=== PATIENT | female | born 1990 | race Caucasian/White ===

== ENCOUNTER → 2019-09-27 | Outpatient (CLI) | payer OTHER, SELFPAY ==
[2019-03-05 09:57] VITALS: BMI 23.3
[2019-09-27 12:25] LABS: hCG Titer Quant., Serum 164 mIU/mL (1-3)
== END | disposition home or self-care (01) ==
LOC: LAB 09:43
PROVIDERS: PCP Family Medicine; Referring Provider Obstetrics & Gynecology; Visit Provider Obstetrics & Gynecology
DX: O20.0 Threatened abortion (principal)
CPT/HCPCS: 36415; 84702

== ENCOUNTER → 2019-09-30 | Outpatient (CLI) | payer OTHER, SELFPAY ==
[2019-03-05 09:57] VITALS: BMI 23.3
[2019-09-30 11:08] LABS: hCG Titer Quant., Serum 799 mIU/mL (1-3)
== END | disposition home or self-care (01) ==
LOC: LAB 09:46
PROVIDERS: PCP Family Medicine; Referring Provider Obstetrics & Gynecology; Visit Provider Obstetrics & Gynecology
DX: N91.2 Amenorrhea, unspecified (principal)
CPT/HCPCS: 36415; 84702

== ENCOUNTER → 2019-10-10 07:54 | Outpatient (CLI) | payer OTHER, SELFPAY ==
[2019-03-05 09:57] VITALS: BMI 23.3
--- NOTE | 2019-10-10 07:56 | US_ITS ---
STUDY: FIRST TRIMESTER OBSTETRICAL ULTRASOUND REASON FOR EXAM: Female, 29 years old dating/initial LMP: August 22, 2019. TECHNIQUE: Transvaginal TECHNICAL QUALITY: Adequate. PRIOR ULTRASOUND: None. FINDINGS: There is visualization of a single gestational sac in a normal intrauterine position. The mean sac diameter (MSD) measures 1.2 cm, indicating an estimated gestational age (EGA) of 5 weeks, 5 days. The gestational sac shape is within normal limits. There is a visualized yolk sac. The yolk sac measures 3 mm. The placenta is non-visualized. There is visualization of a live embryo. The crown-rump length (CRL) measures 3 mm, indicating an estimated gestational age (EGA) of 6 weeks, 1 days. There is demonstrated cardiac activity with a heart rate of 107 bpm. The estimated gestation age (EGA) by LMP is 7 weeks, 0 days. The estimated date of delivery (ROSSY) by LMP is May 28, 2020. The estimated gestation age (EGA) by US is 5 weeks, 6 days. The estimated date of delivery (ROSSY) by US is June 05, 2020. The uterus measures 10 cm x 6.9 cm x 5.4 cm. There is no demonstrated uterine fibroid. The cervix is closed. The right ovary measures 3 cm x 2.1 cm x 1.9 cm. There is no right ovarian cyst. There is no visualized right adnexal mass or complex lesion. The left ovary measures 4.2 cm x 2.8 cm x 2.7 cm. A dominant follicle is seen within the left ovary measuring 1.5 cm x 1.5 cm x 1.3 cm. There is no visualized left adnexal mass or complex lesion. There is no fluid in the cul de sac. US/Transvaginal w/Preg US IMPRESSION: Single live intrauterine gestation with a mean gestational age of 5 weeks and 6 days. 1.5 cm x 1.5 cm x 1.3 cm follicle in the left ovary. Electronically Signed: Clovis Byrd, at 10:14 EDT , Service support ,
== END ==
PROVIDERS: PCP Family Medicine; Referring Provider Obstetrics & Gynecology; Visit Provider Obstetrics & Gynecology
DX: Z36.87 Encounter for antenatal screening for uncertain dates (principal)
CPT/HCPCS: 76817

== ENCOUNTER → 2019-10-14 | Outpatient (CLI) | payer OTHER, SELFPAY ==
[2019-03-05 09:57] VITALS: BMI 23.3
== END | disposition home or self-care (01) ==
LOC: PAVLAB 12:13 → LAB 12:19
PROVIDERS: PCP Family Medicine; Referring Provider Nurse Practitioner Women's Health; Visit Provider Nurse Practitioner Women's Health
DX: O26.899 Other specified pregnancy related conditions, unspecified trimester (principal); Z67.91 Unspecified blood type, Rh negative; Z3A.00 Weeks of gestation of pregnancy not specified
CPT/HCPCS: 36415; 86850; 86900; 86901

== ENCOUNTER → 2019-10-16 11:32 | Outpatient (CLI) | payer OTHER, SELFPAY ==
[2019-03-05 09:57] VITALS: BMI 23.3
[2019-10-14 12:51] VITALS: BMI 23.3
--- NOTE | 2019-10-16 11:33 | US_ITS ---
STUDY: FIRST TRIMESTER OBSTETRICAL ULTRASOUND REASON FOR EXAM: Female, 29 years old BLEEDING- well being LMP: August 22, 2019. TECHNIQUE: Transvaginal TECHNICAL QUALITY: Adequate. PRIOR ULTRASOUND: Comparison is made with prior examination dated October 10, 2019. FINDINGS: There is visualization of a single gestational sac in a normal intrauterine position. The mean sac diameter (MSD) measures 2.1 cm, indicating an estimated gestational age (EGA) of 7 weeks, 1 days. The gestational sac shape is within normal limits. There is a visualized yolk sac. The yolk sac measures 2 mm. The placenta is non-visualized. There is visualization of a live embryo. The crown-rump length (CRL) measures 1 cm, indicating an estimated gestational age (EGA) of 7 weeks, 1 days. There is demonstrated cardiac activity with a heart rate of 1:30 bpm. The estimated gestation age (EGA) by LMP is 7 weeks, 6 days. The estimated date of delivery (ROSSY) by LMP is May 28, 2020. The estimated gestation age (EGA) by US is 7 weeks, 1 days. The estimated date of delivery (ROSYS) by US is June 02, 2020. The uterus measures 10.5 cm x 6 cm x 5.2 cm. There is no demonstrated uterine fibroid. The cervix is closed. The right ovary measures 2.3 cm x 1.9 cm x 1.5 cm. There is no right ovarian cyst. There is no visualized right adnexal mass or complex lesion. The left ovary measures 3.5 cm x 2.7 cm x 2.6 cm. There is no left ovarian cyst. There is no visualized left adnexal mass or complex lesion. There is no fluid in the cul de sac. US/Transvaginal w/Preg US IMPRESSION: Single live intrauterine gestation with a mean gestational age of 7 weeks and 1 day. The previously seen follicle in the left ovary is not seen at this time. Electronically Signed: Clovis Byrd, at 12:32 EDT , Service support ,
== END ==
PROVIDERS: PCP Family Medicine; Referring Provider Obstetrics & Gynecology; Visit Provider Obstetrics & Gynecology
DX: O20.0 Threatened abortion (principal); Z3A.00 Weeks of gestation of pregnancy not specified
CPT/HCPCS: 76817

== ENCOUNTER → 2019-10-31 | Outpatient (CLI) | payer OTHER, SELFPAY ==
[2019-10-31 11:35] VITALS: BMI 23.3
[2019-10-31 17:05] LABS: Amphetamine Urine VISTA NEGATIVE (<1000 ng/mL); Barbiturate Urine VISTA NEGATIVE (< 200 ng/mL); Benzodiazepine Urine VISTA NEGATIVE (< 200 ng/mL); Cocaine Urine VISTA NEGATIVE (< 300 ng/mL); Ecstacy Urine VISTA NEGATIVE (< 500 ng/mL); Methadone Urine VISTA NEGATIVE (< 300 ng/mL); PCP Urine VISTA NEGATIVE (< 25 ng/mL); THC Urine VISTA NEGATIVE (< 50 ng/mL); Vista UDS pH Range 6
[2019-10-31 18:46] LABS: Chlamydia Trachomatis by PCR Negative (Negative); Neisserai gonorrhoeae by PCR Negative (Negative); Probe Check PASS; Sample Adequacy Control PASS; Specimen Processing Control PASS
== END | disposition home or self-care (01) ==
LOC: LABSPEC 16:05
PROVIDERS: PCP Family Medicine; Referring Provider Obstetrics & Gynecology; Visit Provider Obstetrics & Gynecology
DX: Z34.80 Encounter for supervision of other normal pregnancy, unspecified trimester (principal)
CPT/HCPCS: 80307; 87086; 87088; 87491; 87591

== ENCOUNTER → 2019-11-08 | Outpatient (CLI) | payer OTHER, SELFPAY ==
[2019-10-31 11:35] VITALS: BMI 23.3
[2019-11-08 13:35] LABS: NATERA MAILED SPECIMEN
[2019-11-08 13:55] LABS: Absolute Lymphocyte Count 2.16 X10^3/uL (0.83-4.51); Basophil# 0.04 X10^3/uL; Basophil% 0.4 % (0-1); Eosinophil# 0.04 X10^3/uL; Eosinophils% 0.4 % (0-5); Hematocrit 39.8 % (37-47); Hemoglobin 13.4 g/dL (12.0-15.0); Lymphocyte # 2.16 X10^3/ul (4.0); Lymphocyte % 22.2 % (19-41); Mean Corp Hgb Conc 33.7 g/dL (32-36); Mean Corpuscular Hgb 30.8 pg (27.0-32.0); Mean Corpuscular Volume 91.5 fL (81-99); Mean Platelet Vol. 10.2 fl (6.2-12.0); Monocyte# 0.52 X10^3/uL; Monocyte% 5.3 % (0-10); NRBC Flagged by Analyzer 0 % (0-5); Neutrophil # 6.97 X10^3/uL (2.7-7.7); Neutrophil % 71.5 % (47-70); Platelet Count 233 K/mm3 (150-450); RBC Distribution Width CV 12.8 % (11.6-14.6); Red Blood Count 4.35 M/mm3 (4.2-5.4); White Blood Count 9.8 K/mm3 (4.4-11.0)
[2019-11-08 14:15] LABS: Amphetamine Urine VISTA NEGATIVE (<1000 ng/mL); Barbiturate Urine VISTA NEGATIVE (< 200 ng/mL); Benzodiazepine Urine VISTA NEGATIVE (< 200 ng/mL); Cocaine Urine VISTA NEGATIVE (< 300 ng/mL); Ecstacy Urine VISTA NEGATIVE (< 500 ng/mL); Methadone Urine VISTA NEGATIVE (< 300 ng/mL); PCP Urine VISTA NEGATIVE (< 25 ng/mL); THC Urine VISTA NEGATIVE (< 50 ng/mL); Vista UDS pH Range 6
[2019-11-08 14:56] LABS: HIV - WCH Non-Reactive (Nonreactive); Hepatitis B Surface Antigen Non-Reactive (Nonreactive); Hepatitis C Antibody Non-Reactive (Nonreactive); Rubella IgG 96.3 IU/mL
[2019-11-14 02:30] LABS: Rapid Plasmin Reagin (RPR) NONREACTIVE (NONREACTIVE)
== END | disposition home or self-care (01) ==
LOC: LAB 12:33
PROVIDERS: PCP Family Medicine; Referring Provider Obstetrics & Gynecology; Visit Provider Obstetrics & Gynecology
DX: Z34.81 Encounter for supervision of other normal pregnancy, first trimester (principal)
CPT/HCPCS: 36415; 80307; 85025; 86592; 86703; 86762; 86803; 86850; 86870; 86900; 86901; 87340

== ENCOUNTER → 2020-01-16 | Outpatient (CLI) | payer OTHER, SELFPAY ==
[2020-01-16 10:08] VITALS: BMI 23.3
== END | disposition home or self-care (01) ==
LOC: LAB 10:25
PROVIDERS: PCP Family Medicine; Referring Provider Obstetrics & Gynecology; Visit Provider Obstetrics & Gynecology
DX: R79.9 Abnormal finding of blood chemistry, unspecified (principal)
CPT/HCPCS: 36415; 86850; 86870; 86900; 86901

== ENCOUNTER → 2020-03-13 | Outpatient (CLI) | payer OTHER, SELFPAY ==
[2020-02-13 11:04] VITALS: BMI 23.3
[2020-03-13 10:42] LABS: Absolute Lymphocyte Count 1.65 X10^3/uL (0.83-4.51); Basophil# 0.04 X10^3/uL; Basophil% 0.4 % (0-1); Eosinophil# 0.07 X10^3/uL; Eosinophils% 0.7 % (0-5); Hematocrit 37.4 % (37-47); Hemoglobin 12.4 g/dL (12.0-15.0); Lymphocyte # 1.65 X10^3/ul (4.0); Lymphocyte % 17.4 % (19-41); Mean Corp Hgb Conc 33.2 g/dL (32-36); Mean Corpuscular Hgb 32.5 pg (27.0-32.0); Mean Corpuscular Volume 98.2 fL (81-99); Mean Platelet Vol. 10.4 fl (6.2-12.0); Monocyte# 0.62 X10^3/uL; Monocyte% 6.5 % (0-10); NRBC Flagged by Analyzer 0 % (0-5); Neutrophil # 6.99 X10^3/uL (2.7-7.7); Neutrophil % 73.6 % (47-70); Platelet Count 174 K/mm3 (150-450); RBC Distribution Width CV 13.2 % (11.6-14.6); RBC Distribution Width SD 46.8 fl (35.1-43.9); Red Blood Count 3.81 M/mm3 (4.2-5.4); White Blood Count 9.5 K/mm3 (4.4-11.0)
[2020-03-13 10:51] LABS: Glucose Challenge Gest 1H 50g 66 mg/dL (70-140)
== END | disposition home or self-care (01) ==
LOC: PAVLAB 09:56
PROVIDERS: Obstetrics & Gynecology; PCP Family Medicine; Referring Provider Obstetrics & Gynecology; Visit Provider Obstetrics & Gynecology
DX: O26.891 Other specified pregnancy related conditions, first trimester (principal); O09.91 Supervision of high risk pregnancy, unspecified, first trimester; O34.219 Maternal care for unspecified type scar from previous cesarean delivery; O26.22 Pregnancy care for patient with recurrent pregnancy loss, second trimester; Z3A.24 24 weeks gestation of pregnancy
CPT/HCPCS: 36415; 82950; 85025; 86850; 86900; 86901

== ENCOUNTER → 2020-05-07 | Outpatient (CLI) | payer OTHER, SELFPAY ==
[2020-05-07 09:07] VITALS: BMI 27.8
== END | disposition home or self-care (01) ==
LOC: LABSPEC 12:28
PROVIDERS: PCP Family Medicine; Visit Provider Obstetrics & Gynecology
DX: Z34.90 Encounter for supervision of normal pregnancy, unspecified, unspecified trimester (principal)
CPT/HCPCS: 87081

== ENCOUNTER → 2020-05-21 | Outpatient (CLI) | payer OTHER, SELFPAY ==
[2020-04-23 08:50] VITALS: BMI 27.6
[2020-05-15 15:54] VITALS: BMI 28.3
== END | disposition home or self-care (01) ==
LOC: LABSPEC 17:43
PROVIDERS: PCP Family Medicine; Referring Provider Obstetrics & Gynecology; Visit Provider Obstetrics & Gynecology
DX: Z34.80 Encounter for supervision of other normal pregnancy, unspecified trimester (principal)
CPT/HCPCS: 87635; C9803; U0003

== ENCOUNTER 2020-05-27 05:00 | Inpatient (IN) | payer OTHER, SELFPAY ==
[2020-03-13 10:33] VITALS: BMI 23.3
[2020-05-22 15:00] VITALS: BMI 28.5
[2020-05-27] VITALS (16 sets, daily range): BP systolic 98–120; BP diastolic 32–76; PULSE 75–94; RESP 15–18; TEMP 36.2–37.2; O2SAT 95–100; BMI 28.7
--- NOTE | 2020-05-27 05:11 | HP.PCM_ITS ---
- Problem List (1) 35 weeks gestation of Status: Acute Comment: NEGATIVE (2) History of delivery, antepartum Status: Acute Comment: Desires c/s at 39 weeks w/ SM, scheduled 05/27 at 730 (3) History of recurrent miscarriages Status: Acute Comment: 1 term delivery, 1 chemical with loss and 1 first trimester loss. Discussed antiphospholipid antibody syndrome work-up if desired patient declines at this time. (4) Status: Acute Qualifiers: Comment: NIPT low risk declines carrier, NTD declined. 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 Chioma Quick MD) Smoking Status: Never smoker alcohol intake: never substance use type: does not use caffeine: Yes what type of physical activity do you participate in: walking seatbelt use: always do you feel safe at home: Yes additional social history: - Sylvain Pregancy History 3 Elective abortions Hx Para 1 Spontaneous abortions 1 Hx # Term Pregnancies Ectopic pregnancies Hx # Pregnancies Multiple births # of living children 1 Past Pregnancies Del. Date Name GA/Weeks Outcome Route Bth Weight [facility]17 Step[facility]nie 41 live - full term 7.8 Male epidural Matthew Ferreira Delivery Date: 04/27/17 decrease in heart rate- c/s Maribel Tay HPI 38WK OB : Details: FAUSTINA VALDOVINOS is a 29 year old who presents for RLTCS. OB Visit ROSSY Calculator Estimated Delivery Date Method Current WG Current Estimate 06/03/20 Ultrasound #1 38w 2d Expected Delivery Route/Plan RLTCS with SM patient counseled regarding risks/benefits of trial of labor versus repeat . ACOG and uptodate education given to patient. 65-78 % likelihood of success per calculator : yes PP control planned: OCPs Specific Issue/Plans flu vaccine: tdap vaccine: given rhogam: given LARC form signed: yes movement and labor precautions reviewed. Problem list reviewed and updated with the most current plan of care details and appropriate orders placed. Relevant counseling for the gestational age provided. Continue routine care and follow up unless otherwise noted in visit notes/problem list details Initial Weight: 126 lb Date EGA Weight BP Urine Prot Glucose FHR FuHt Pres Dilation Effaced St Visit Note 10/21/19 7w 5d 126 lb (+0 oz) 120/74 150 SM had bleeding postcoital, recevied rhogam last week, no cramping and bleeding decreasing now. 10/31/19 9w 1d 129 lb (+3 lb) 180 SM- no vb cramping doing well 11/19/19 11w 6d 126 lb 6 oz (+6 oz) 112/76 Negative Negative 171 MH-work in for cramping. Active IUP on US. Denies VB, lof. NIPT low risk. MH-work in for cramping. Active IUP on US. Denies VB, lof. NIPT low risk. Reassured probable RLP 12/19/19 16w 1d 127 lb 2 oz (+1 lb 2 oz) 110/70 Negative Negative 157 MH-NO VB, LOF. Slight flutters. Anatomy US scheduled. Declines AFP 01/16/20 20w 1d 130 lb (+4 lb) 106/70 Negative Negative 150 20 SM- no vb cramping, t and s today 02/13/20 24w 1d 138 lb (+12 lb) 100/64 Negative Negative 155 24 GP - denies LOF/VB/DFM/Ctx. Increased heartburn - recommended pepcid. 03/13/20 28w 2d 143 lb 8 oz (+17 lb 8 oz) 108/64 Negative Negative 150 28 Sm- no vb lof good fm no regular ctx 03/25/20 30w 0d 147 lb (+21 lb) 112/72 Negative Negative 128 30 MH-No VB, LOF. Some pelvic bone pain/aylin band. 04/08/20 32w 0d 148 lb 6 oz (+22 lb 6 oz) 120/76 Negative Negative 155 32 GP - no LOF, VB, DFM. Had Richard-Oseguera yesterday. Denies complaints. Discussed typically do not do extra ultrasounds unless concerned for abnormalities. 04/23/20 34w 1d 151 lb (+25 lb) 109/75 Negative Negative 140 34 Cephalic SM- no vb lof good fm no regular ctx but some B-H ctx 05/07/20 36w 1d 152 lb (+26 lb) 124/62 Negative Negative 140 36 Cephalic SM- no vb lof good fm no regular ctx 05/15/20 37w 2d 155 lb (+29 lb) 122/70 Negative Negative 140 37 Cephalic SM- no vb lof good fm no regular ctx 05/22/20 38w 2d 156 lb 4 oz (+30 lb 4 oz) 120/82 140 38 Cephalic 1 70 -2 GP - no LOF, VB, DFM, reg ctx. Scheduled for RCS next week unless active labor before that time. ACOG First Trimester First Trimester: Desire for , Alcohol, Tobacco Cessation, Ill icit/Recreational Drug/Substance Use, Intimate Partner Violence, Barriers to care, Unstable Housing, Communication Barriers, Environmental/Work Hazards, Anticipated Course of Care, Toxoplasmosis Precations, Use of Any medications, Sexual activity, Exercise, Dental Care, Sauna/Hot tub use, Seat Belt use, Childbirth classes/Hospital facilities, Travel, Indications for US and Screening for Aneuploidy Second Trimester Second Trimester: Signs and Symptoms of Labor, Selecting a care provider, Reproductive Life Planning, Care Planning, Depr ession/Anxiety and Intimate Partner Violence; discussed Tobacco Cessation Diagnostics Diagnostics Diagnostics Blood Type O NEGATIVE 03/13/20 Antibody Screen NEGATIVE 03/13/20 Glucose 1 Hr 50 gm 66 mg/dL (70-140) L 03/13/20 Hgb 12.4 g/dL (12.0-15.0) 03/13/20 Hct 37.4 % (37-47) 03/13/20 Details: HIV: Urine Culture: Sequential Screen: NIPT Screen: ROS Const Reports system reviewed and no additional complaints, except as docu Eyes Reports system reviewed and no additional complaints, except as docu ENT Reports system reviewed and no additional complaints, except as docu Card Reports system reviewed and no additional complaints, except as docu Resp Reports system reviewed and no additional complaints, except as docu GI Reports system reviewed and no additional complaints, except as docu Reports system reviewed and no additional complaints, except as docu, Denies abnormal vaginal bleeding, Denies painful urination, Denies nipple discharge, Denies pelvic pain, Denies vaginal discharge, Denies vaginal odor, Denies vaginal itching Musc Reports system reviewed and no additional complaints, except as docu Skin/Breast Reports system reviewed and no additional complaints, except as docu, Denies nipple discharge Neuro Yes system reviewed and no additional complaints, except as docu Psych Reports system reviewed and no additional complaints, except as docu Exam Const General: cooperative, healthy appearing, comfortable, no acute distress, well developed, well groomed Nutritional Appearance: average body habitus, well nourished Orientation: alert, awake, oriented x3 [facility] Head: normal to inspection, normocephalic, atraumatic Eyes Pupils: PERRL, accommodation normal Resp Effort & Inspection: normal respiratory effort, able to speak in complete s entences, symmetric chest movement Cardio Rate: regular rate GI Palpation: soft, no guarding, no masses, nontender Skin General: no rashes or lesions noted, elasticity normal, turgor normal Neuro General: alert, awake, oriented x3 Cranial Nerves: CN's II-XI intact bilaterally, sense of smell intact, PERRL, accommodation normal, EOM intact bilaterally Speech: speech normal Gait: normal gait Psych Appearance: grossly normal, well kempt Mental Status: mental status grossly normal Mood: congruent mood Affect: normal affect Speech and Movement: speech and movement normal Attitude: cooperative Thought Process: normal Thought Content: normal Judgment: judgment good Assessment & Plan Problems 1. 35 weeks gestation of Z3A.35 electronic covid test ordered 04/29/2020sc (scheduled 05/21/20 at 4:30) 2. Supervision of high-risk O09.90 PRR ROSSY 06/03/2020 Boy - Dagoberto PC: [place] Spouse: Sylvain 3. History of delivery, antepartum O34.219 Desires c/s at 39 weeks w/ SM, scheduled 05/27 at 730 4. Rh negative status during O26.899; Z67.91 given rhogam october, repeat t and s next visit due to positive antibody, weak antibody recheck @ 28 wks 5. 38 weeks gestation of Z3A.38 NIPT low risk declines carrier, NTD declined. anatomy normal 6. History of recurrent miscarriages N96 1 term delivery, 1 chemical with loss and 1 first trimester loss. Discussed antiphospholipid antibody syndrome work-up if desired patient declines at this time. plan RLTCS with SM Orders Orders: POC Urinalysis 2 Dip (Clinic) Today Coding Level of Care Code OB Routine Diagnoses 35 weeks gestation of Z3A.35 Supervision of high-risk O09.90 History of delivery, antepartum O34.219 Rh negative status during O26.899; Z67.91 38 weeks gestation of Z3A.38 ??Weeks of gestation: 38 weeks History of recurrent miscarriages N96 UPDATE- I have seen the patient and performed any clinically relevant updates to the history and physical exam. Minoo Munroe MD
--- NOTE | 2020-05-27 05:12 | PCM.OPRPT ---
Problem List (1) 35 weeks gestation of Status: Acute Comment: NEGATIVE (2) History of delivery, antepartum Status: Acute Comment: Desires c/s at 39 weeks w/ SM, scheduled 05/27 at 730 (3) History of recurrent miscarriages Status: Acute Comment: 1 term delivery, 1 chemical with loss and 1 first trimester loss. Discussed antiphospholipid antibody syndrome work-up if desired patient declines at this time. (4) Status: Acute Qualifiers: Comment: NIPT low risk declines carrier, NTD declined. 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 Spinal anesthesia was placed without difficulty. Medel catheter was placed. The patient was placed in the dorsal supine position with leftward tilt. Patient was prepped and draped in the normal sterile fashion. Pfannenstiel skin incision was made with the scalpel and carried through to the underlying layer of fascia with the scalpel. Fascia was nicked in the midline and the incision extended laterally. The rectus bellies were dissected off superiorly and inferiorly with out complication both sharply and bluntly. The peritoneum was entered digitally. The incision was stretched and a low transverse uterine incision was made with the scalpel. The 's head was delivered atraumatically followed by the anterior and posterior shoulders without complication the rest of the delivered. The cord was clamped and cut and the was handed off to awaiting nurse. The placenta was delivered spontaneously immediately following and was noted to be intact and have a three-vessel cord. The uterus was exteriorized cleared of all clots and debris, and the incision was closed in a double layer closure using #1 Monocryl. The ovaries and fallopian tubes were noted to be within normal limits. The uterus was returned to the maternal abdomen and gutters were cleared of all clots and debris. The peritoneum was closed with 3-0 Monocryl in a running fashion. Gloves were changed prior to fascial closure. Fascia was closed with 0 PDS in a running fashion. Subcutaneous tissue was copiously irrigated and the skin was closed with 3-0 Monocryl in a subcuticular fashion. Mepilex dressing was applied without complication. Patient was taken to recovery in stable condition. Amniotic Membrane Rupture Type: Spontaneous Amniotic Fluid Description: Clear Placenta Disposition: [facility] Drain: Medel to straight drain Fluids Replaced: crystalloid Cord Vessel Description: 3 Vessels Esitmated Blood Loss (ml): 500 Infant Gender: Male Delayed cord clamping: Yes Antibiotic Given: Ancef 2 grams IV x1 Pt instructed on risks of surgery: Bleeding, Anesthesia Risks, Infection, Injury to surrounding structure(s) including bowel and bladder Complications: None - Admit VTE Documentation VTE Present on Admission: No VTE Mechan Device Prophylaxis: SCD's Multi Select Codes - Urinary/Genital Urinary/Genital CPT Codes: 11462 Delivery [facility]
--- NOTE | 2020-05-27 05:16 | DCINST_ITS ---
Discharge Diet: No Restrictions Discharge Activity: May Not Drive - for 2 weeks, May not drive while taking narcotic pain medications., May Shower, May Take a Tub Bath - in 7 days May resume sexual activity in: 4-6 weeks Lifting Restrictions: 20 pounds Additional Activity Instructions:: Nothing in the vagina for 4-6 weeks. You may return to work/school in 6 weeks. Call your doctor if your incision/area has: Continuous Slow Oozing, Sudden Increased Bleeding, Increased Pain/ Swelling, Increased Redness, Foul Smelling Discharge Call your doctor if you observe: Fever of 101 or Higher, Using more than one pad per hour - for 2 hours Suture Line Care: Avoid Pulling/Pushing, Avoid Pinching/Bending Cleanse incision/area with: Keep Dressing Clean & Dry Additional Instructions: If you experience any of the following, contact your healthcare provider. * Bleeding that soaks a pad every hour for 2 hours * Fever 100.4 or higher * Unrelieved incision or abdominal pain * Swelling, redness, discharge or bleeding from your incision or episiotomy site * Your incision begins to separate * Problems urinating (including inability to urinate or burning while urinating). * Visual changes * Severe headache * Flu-like symptoms * Pain or redness in one of both of your breasts * Pain, warmth, tenderness or swelling in your legs, especially the calf area * Frequent nausea and vomiting * Symptoms of depression or anxiety If you experience any of the following, call 911 or go to the nearest Emergency Room. * Chest pain * Problems breathing * Seizure activity * Partial or complete paralysis of a body part, slurred speech, weakness or drooping of the face, or a sudden inability to walk or hold your balance Allergies/Adverse Reactions: Allergies No Known Allergies Allergy (Verified 05/27/20 05:15) Medications to take at Discharge vitamin#30 30 mg iron-10 mg iron-folic acid 1 mg-omg3 capsule cap PO cap 03/05/19 Follow-Up: Call to make an appointment with your doctor for an incision check in 1-2 weeks. You will also need a 6 week post- follow up appointment. Test results from this visit will be discussed in further detail at your follow- up appointment, if applicable. Please Follow Up With: Minoo Munroe MD - Call to make an appointment for an incision check in 1-2 [phone] When: You will need a post- check in 6 weeks. Primary Care Physician: Freddie Tadeo, [Primary Care Provider] -
[2020-05-27] MEDS: Lactated Ringers 1,000 ML 999 ML IV (05:20)
[2020-05-27] MEDS: Acetaminophen 500 MG Tablet 1000 MG PO ×3 (05:43→18:15)
[2020-05-27 05:44] LABS: Absolute Lymphocyte Count 2.16 X10^3/uL (0.83-4.51); Absolute Neutrophil Count 6.9 X10^3/uL (2.0-7.7); Basophil# 0.04 X10^3/uL; Basophil% 0.4 % (0-1); Eosinophil# 0.04 X10^3/uL; Eosinophils% 0.4 % (0-5); Hematocrit 38.3 % (37-47); Hemoglobin 12.7 g/dL (12.0-15.0); Lymphocyte # 2.16 X10^3/ul (4.0); Lymphocyte % 22.2 % (19-41); Mean Corp Hgb Conc 33.2 g/dL (32-36); Mean Corpuscular Hgb 31.9 pg (27.0-32.0); Mean Corpuscular Volume 96.2 fL (81-99); Mean Platelet Vol. 11.1 fl (6.2-12.0); Monocyte# 0.57 X10^3/uL; Monocyte% 5.9 % (0-10); NRBC Flagged by Analyzer 0 % (0-5); Neutrophil # 6.87 X10^3/uL (2.7-7.7); Neutrophil % 70.7 % (47-70); Platelet Count 183 K/mm3 (150-450); RBC Distribution Width CV 13.6 % (11.6-14.6); RBC Distribution Width SD 47.8 fl (35.1-43.9); Red Blood Count 3.98 M/mm3 (4.2-5.4); White Blood Count 9.7 K/mm3 (4.4-11.0)
[2020-05-27] MEDS: Lactated Ringers 1,000 ML 150 ML IV (06:24)
[2020-05-27] MEDS: Sodium Citrate/Citric Acid 30 ML UDC PO (07:04)
[2020-05-27] MEDS: Cefazolin 2 GM in 0.9% Normal Saline 100 ML IV (07:25)
[2020-05-27] MEDS: Oxytocin 30 units/NS 500 ml 30 UNITS/500 ML IV.SOLN 167 UNITS IV (08:27)
[2020-05-27] MEDS: Lactated Ringers 1,000 ML 100 ML IV (11:34)
[2020-05-27] MEDS: Prenatal Vits Tablet 1 TABLET PO (12:24)
[2020-05-27] MEDS: Ketorolac 30 MG/ML Syringe IV ×2 (14:08→20:28)
--- NOTE | 2020-05-27 15:51 | NURSING ---
Had pt sit on side of bed for 10 minutes, but pt felt dizzy and shaky. Pt stood up at bedside but continued to feel dizzy and felt like her legs were still weak. Will attempt to get pt up later.
--- NOTE | 2020-05-27 19:21 | NURSING ---
this RN received in report that pt stood at bedside at this time. this RN planning to get pt to ambulate in room as soon as possible.
[2020-05-27] MEDS: 0.9% Saline Lock 10 ML Syringe IV (20:29)
[2020-05-28] MEDS: Acetaminophen 500 MG Tablet 1000 MG PO ×4 (00:11→19:30)
[2020-05-28 00:20] VITALS: BP 127/83; PULSE 71; RESP 16; TEMP 36.8
[2020-05-28] MEDS: Ketorolac 30 MG/ML Syringe IV ×2 (02:49→07:50)
[2020-05-28] MEDS: 0.9% Saline Lock 10 ML Syringe IV (02:50)
[2020-05-28 02:55] VITALS: BP 110/71; PULSE 73; RESP 14; TEMP 36.6
[2020-05-28 03:26] LABS: Hematocrit 36.1 % (37-47); Hemoglobin 11.9 g/dL (12.0-15.0); Mean Corpuscular Hgb 32.3 pg (27.0-32.0); Mean Corpuscular Volume 98.1 fL (81-99); Mean Platelet Vol. 10.1 fl (6.2-12.0); Platelet Count 154 K/mm3 (150-450); RBC Distribution Width CV 13.8 % (11.6-14.6); RBC Distribution Width SD 49.7 fl (35.1-43.9); Red Blood Count 3.68 M/mm3 (4.2-5.4); White Blood Count 11.8 K/mm3 (4.4-11.0)
[2020-05-28] MEDS: Senna/Docusate Sodium 1 Tablet PO (07:50)
[2020-05-28] MEDS: Prenatal Vits Tablet 1 TABLET PO (07:51)
[2020-05-28 07:58] VITALS: BP 111/82; PULSE 78; RESP 14; TEMP 36.6; O2SAT 95
--- NOTE | 2020-05-28 09:28 | PCM.PN.OB ---
Patient Problems: Active and Suspected Problems (Last Reviewed 05/22/20 @ 15:00 by Rosa Shafer) 35 weeks gestation of (Acute) NEGATIVE Supervision of high-risk (Acute) PRR ROSSY 06/03/2020 Mahad Arenas PC: [place] Spouse: Sylvain History of delivery, antepartum (Acute) Desires c/s at 39 weeks w/ SM, scheduled 05/27 at 730 Rh negative status during (Acute) given rhogam october, repeat t and s next visit due to positive antibody, weak antibody recheck @ 28 wks (Acute) NIPT low risk declines carrier, NTD declined. anatomy normal History of recurrent miscarriages (Acute) 1 term delivery, 1 chemical with loss and 1 first trimester loss. Discussed antiphospholipid antibody syndrome work-up if desired patient declines at this time. Subjective: Patient doing well without complaints. Tolerating PO. Ambulating and voiding without difficulty. breast feeding well. Denies chest pain, shortness of breath, calf pain/swelling, fevers, chills, lightheadedness. Objective: Laboratory Tests 05/28/20 05/27/20 05/27/20 Range/Units 03:10 05:20 05:20 WBC 11.8 H (4.4-11.0) K/mm3 RBC 3.68 L (4.2-5.4) M/mm3 Hgb 11.9 L (12.0-15.0) g/dL Hct 36.1 L (37-47) % MCV 98.1 (81-99) fL MCH 32.3 H (27.0-32.0) pg MCHC 33.0 (32-36) g/dL RDW Std Deviation 49.7 H (35.1-43.9) fl RDW Coeff of Mabel 13.8 (11.6-14.6) % Plt Count 154 (150-450) K/mm3 MPV 10.1 (6.2-12.0) fl Immature Gran % (Auto) (0.0-0.9) % Neut % (Auto) (47-70) % Lymph % (Auto) (19-41) % Lyon % (Auto) (0-10) % Eos % (Auto) (0-5) % Baso % (Auto) (0-1) % Absolute Neuts (auto) (2.0-7.7) X10^3/uL Absolute Lymphs (auto) (0.83-4.51) X10^3/uL Nucleated RBC % (0-5) % Blood Type Antibody Screen NEGATIVE Antibody Scrn Cancelled 05/27/20 05/27/20 Range/Units 05:20 05:20 WBC 9.7 (4.4-11.0) K/mm3 RBC 3.98 L (4.2-5.4) M/mm3 Hgb 12.7 (12.0-15.0) g/dL Hct 38.3 (37-47) % MCV 96.2 (81-99) fL MCH 31.9 (27.0-32.0) pg MCHC 33.2 (32-36) g/dL RDW Std Deviation 47.8 H (35.1-43.9) fl RDW Coeff of Mabel 13.6 (11.6-14.6) % Plt Count 183 (150-450) K/mm3 MPV 11.1 (6.2-12.0) fl Immature Gran % (Auto) 0.400 (0.0-0.9) % Neut % (Auto) 70.7 H (47-70) % Lymph % (Auto) 22.2 (19-41) % Lyon % (Auto) 5.9 (0-10) % Eos % (Auto) 0.4 (0-5) % Baso % (Auto) 0.4 (0-1) % Absolute Neuts (auto) 6.9 (2.0-7.7) X10^3/uL Absolute Lymphs (auto) 2.16 (0.83-4.51) X10^3/uL Nucleated RBC % 0 (0-5) % Blood Type O NEGATIVE Antibody Screen TNP Antibody Scrn - Physical Exam Vitals/I&O's: Vital Signs Temp Pulse Resp BP Pulse Ox 97.8 F 78 14 111/82 H 95 05/28/20 07:58 05/28/20 07:58 05/28/20 07:58 05/28/20 07:58 05/28/20 07:58 Oxygen Delivery Method Room Air Weight: 157 lb Body Mass Index (BMI) 28.7 Intake and Output for Last 24 Hours 05/26/20 05/27/20 05/28/20 23:59 23:59 23:59 Intake Total 4686.67 / 4686.67 240 / 240 Output Total 2550 / 3150 600 / 600 Balance 2136.67 / 1536.67 -360 / -360 General: Alert, Oriented x3, Cooperative, No apparent distress, Well developed, Well nourished HEENT: Atraumatic, PERRLA, EOMI, Normocephalic Neck: Supple, No JVD Lungs: Normal air movement Cardiovascular: Regular rate Abdomen: Soft, Non Tender, Non-Distended, - - incision c/d/i with dressing in place Extremities: No edema, No Calf Tenderness Neurological: Cranial nerves II-XII grossly intact, Neuro grossly intact Psych/Mental Status: Normal Affect, Appropriate Laboratory Results 05/28/20 03:10: WBC 11.8 H, RBC 3.68 L, Hgb 11.9 L, Hct 36.1 L, MCV 98.1, MCH 32.3 H, MCHC 33.0, RDW Std Deviation 49.7 H, RDW Coeff of Mabel 13.8, Plt Count 154, MPV 10.1 Current Medications Acetaminophen (Acetaminophen 500 Mg Tablet) 1,000 mg PO Q6 [facility] Last Admin: 05/28/20 06:33 Dose: 1,000 mg Documented by: Bisacodyl (Bisacodyl 10 Mg Suppository) 10 mg RECTAL UD PRN PRN Reason: If no BM Hydrocortisone (Hydrocortisone 2.5% Crm) 1 applic TOPICAL TID PRN PRN; Protocol PRN Reason: Discomfort Lactated Ringer's () 1,000 mls @ 100 mls/hr IV .Q10H [facility] Last Admin: 05/28/20 05:21 Dose: Not Given Documented by: Methylergonovine Maleate (Methylergonovine 0.2 Mg/Ml Ampul) 0.2 mg IM X1 PRN PRN Reason: Uterine Atony Naloxone HCl (Naloxone 0.4 Mg/Ml Syringe) 0.02 mg IV Q1M PRN PRN Reason: RR <10 and pt unresponsive Naproxen (Naproxen 250 Mg Tablet) 500 mg PO Q8H [facility] Ondansetron HCl (Ondansetron 4 Mg/2 Ml Vial) 4 mg IV Q4H PRN PRN PRN Reason: Nausea Oxycodone HCl (Oxycodone 5 Mg Tablet) 5 - 10 mg PO Q4H PRN PRN PRN Reason: Pain Score 4-10 Multivit/Folic Acid/Iron ( Vits Tablet) 1 tablet PO DAILY@1200 [facility] Last Admin: 05/28/20 07:51 Dose: 1 tablet Documented by: Prochlorperazine Edisylate (Prochlorperazine 10 Mg/2 Ml Vial) 10 mg IV Q6H PRN PRN PRN Reason: NAUSEA Senna/Docusate Sodium (Senna/Docusate Sodium 1 Tablet) 0 tablet PO DAILY [facility] Last Admin: 05/28/20 07:50 Dose: 1 tablet Documented by: Simethicone (Simethicone 80 Mg Tablet) 80 mg PO [facility] PRN PRN Reason: Indigestion/stomach pain Last Admin: 05/28/20 00:19 Dose: 80 mg Documented by: Sodium Chloride (0.9% Saline Lock 10 Ml Syringe) 5 - 15 ml IV UD PRN PRN Reason: SALINE FLUSH Last Admin: 05/28/20 02:50 Dose: 10 ml Documented by: Medical Necessity - Tobacco Use Smoking Status: Never smoker Assessment/Plan All Active Problems (Last Reviewed 05/22/20 @ 15:00 by Rosa Shafer) 35 weeks gestation of (Acute) Supervision of high-risk (Acute) History of delivery, antepartum (Acute) Rh negative status during (Acute) (Acute) History of recurrent miscarriages (Acute) Complete (Resolved) Vaginal bleeding during (Resolved) s/p LTCS PPD # 1 1. routine post care 2. breast feeding- support given 3. rh negative 4. rubella immune
[2020-05-28 13:53] VITALS: BP 122/79; PULSE 84; RESP 14; TEMP 36.7; O2SAT 98
[2020-05-28] MEDS: Naproxen 250 MG Tablet 500 MG PO ×2 (14:48→20:26)
[2020-05-28 20:20] VITALS: BP 114/77; PULSE 78; RESP 18; TEMP 36.9
[2020-05-29 01:37] VITALS: BP 110/77; PULSE 65; RESP 18; TEMP 36.7
[2020-05-29] MEDS: Acetaminophen 500 MG Tablet 1000 MG PO ×2 (01:39→08:25)
[2020-05-29] MEDS: Naproxen 250 MG Tablet 500 MG PO (03:17)
--- NOTE | 2020-05-29 07:48 | PN.OBGYN_ITS ---
Patient Problems: Active and Suspected Problems (Last Reviewed 05/22/20 @ 15:00 by Rosa Shafer) 35 weeks gestation of (Acute) NEGATIVE Supervision of high-risk (Acute) PRR ROSSY 06/03/2020 Mahad Arenas PC: [place] Spouse: Sylvain History of delivery, antepartum (Acute) Desires c/s at 39 weeks w/ SM, scheduled 05/27 at 730 Rh negative status during (Acute) given rhogam october, repeat t and s next visit due to positive antibody, weak antibody recheck @ 28 wks (Acute) NIPT low risk declines carrier, NTD declined. anatomy normal History of recurrent miscarriages (Acute) 1 term delivery, 1 chemical with loss and 1 first trimester loss. Discussed antiphospholipid antibody syndrome work-up if desired patient declines at this time. Subjective: Patient doing well without complaints. Tolerating PO. Ambulating and voiding without difficulty. breast feeding well. Denies chest pain, shortness of breath, calf pain/swelling, fevers, chills, lightheadedness. - Physical Exam Vitals/I&O's: Vital Signs Temp Pulse Resp BP Pulse Ox 98.0 F 65 18 110/77 98 05/29/20 01:37 05/29/20 01:37 05/29/20 01:37 05/29/20 01:37 05/28/20 13:53 Oxygen Delivery Method Room Air Weight: 157 lb Body Mass Index (BMI) 28.7 Intake and Output for Last 24 Hours 05/27/20 05/28/20 05/29/20 23:59 23:59 23:59 Intake Total 4686.67 / 4686.67 240 / 240 Output Total 2550 / 3150 600 / 600 Balance 2136.67 / 1536.67 -360 / -360 General: Alert, Oriented x3 Current Medications Acetaminophen (Acetaminophen 500 Mg Tablet) 1,000 mg PO Q6 [facility] Last Admin: 05/29/20 01:39 Dose: 1,000 mg Documented by: Bisacodyl (Bisacodyl 10 Mg Suppository) 10 mg RECTAL UD PRN PRN Reason: If no BM Hydrocortisone (Hydrocortisone 2.5% Crm) 1 applic TOPICAL TID PRN PRN; Protocol PRN Reason: Discomfort Methylergonovine Maleate (Methylergonovine 0.2 Mg/Ml Ampul) 0.2 mg IM X1 PRN PRN Reason: Uterine Atony Naloxone HCl (Naloxone 0.4 Mg/Ml Syringe) 0.02 mg IV Q1M PRN PRN Reason: RR <10 and pt unresponsive Naproxen (Naproxen 250 Mg Tablet) 500 mg PO Q8H [facility] Last Admin: 05/29/20 03:17 Dose: 500 mg Documented by: Ondansetron HCl (Ondansetron 4 Mg/2 Ml Vial) 4 mg IV Q4H PRN PRN PRN Reason: Nausea Oxycodone HCl (Oxycodone 5 Mg Tablet) 5 - 10 mg PO Q4H PRN PRN PRN Reason: Pain Score 4-10 Multivit/Folic Acid/Iron ( Vits Tablet) 1 tablet PO DAILY@1200 [facility] Last Admin: 05/28/20 07:51 Dose: 1 tablet Documented by: Prochlorperazine Edisylate (Prochlorperazine 10 Mg/2 Ml Vial) 10 mg IV Q6H PRN PRN PRN Reason: NAUSEA Senna/Docusate Sodium (Senna/Docusate Sodium 1 Tablet) 0 tablet PO DAILY [facility] Last Admin: 05/28/20 07:50 Dose: 1 tablet Documented by: Simethicone (Simethicone 80 Mg Tablet) 80 mg PO [facility] PRN PRN Reason: Indigestion/stomach pain Last Admin: 05/28/20 00:19 Dose: 80 mg Documented by: Sodium Chloride (0.9% Saline Lock 10 Ml Syringe) 5 - 15 ml IV UD PRN PRN Reason: SALINE FLUSH Last Admin: 05/28/20 02:50 Dose: 10 ml Documented by: Medical Necessity - Tobacco Use Smoking Status: Never smoker Assessment/Plan All Active Problems (Last Reviewed 05/22/20 @ 15:00 by Rosa Shafer) 35 weeks gestation of (Acute) Supervision of high-risk (Acute) History of delivery, antepartum (Acute) Rh negative status during (Acute) (Acute) History of recurrent miscarriages (Acute) Complete (Resolved) Vaginal bleeding during (Resolved) s/p LTCS PPD # 2 1. routine post care 2. breast feeding- support given 3. rh negative- rhogam PRN 4. rubella immune
[2020-05-29 08:29] VITALS: BP 122/89; PULSE 83; RESP 16; TEMP 36.6; O2SAT 94
== END 2020-05-29 09:15 | disposition home or self-care (01) | DRG 788 ==
PROVIDERS: Admitting Provider Obstetrics & Gynecology; PCP Family Medicine; Referring Provider Obstetrics & Gynecology; Visit Provider Obstetrics & Gynecology
PROC: 10D00Z1 Extraction of Products of Conception, Low, Open Approach (ICD-10-PCS; CPT 59514; principal; 2020-05-27 07:15)
DX: O34.211 Maternal care for low transverse scar from previous cesarean delivery (principal); Z3A.39 39 weeks gestation of pregnancy; Z37.0 Single live birth
CPT/HCPCS: 85025; 85027; 86850; 86900; 86901; 90384; 94762; 99218; 99251; J7120; A4216; G0378; G0463; J2405; J2790

== ENCOUNTER → 2020-06-10 | Outpatient (CLI) | payer OTHER, SELFPAY ==
[2020-06-10 11:25] VITALS: BMI 25.8
== END | disposition home or self-care (01) ==
LOC: LABSPEC 12:57
PROVIDERS: PCP Family Medicine; Referring Provider Nurse Practitioner Women's Health; Visit Provider Nurse Practitioner Women's Health
DX: R30.0 Dysuria (principal)
CPT/HCPCS: 87086; 87088

== ENCOUNTER → 2020-06-23 | Outpatient (CLI) | payer OTHER, SELFPAY ==
[2020-06-23 16:12] VITALS: BMI 25.6
== END | disposition home or self-care (01) ==
PROVIDERS: PCP Family Medicine; Visit Provider Obstetrics & Gynecology
DX: N89.8 Other specified noninflammatory disorders of vagina (principal)
CPT/HCPCS: 87086; 87088

== ENCOUNTER → 2020-07-13 | Outpatient (CLI) | payer OTHER, SELFPAY ==
[2020-07-13 11:22] VITALS: BMI 25.9
[2020-07-16 15:04] LABS: HPV Reflexed? NOT INDICATED
== END | disposition home or self-care (01) ==
LOC: LABSPEC 17:01
PROVIDERS: PCP Family Medicine; Visit Provider Obstetrics & Gynecology
DX: Z12.4 Encounter for screening for malignant neoplasm of cervix (principal)
CPT/HCPCS: 88175; G0145

== ENCOUNTER → 2021-06-29 13:53 | Outpatient (CLI) | payer OTHER, SELFPAY ==
[2021-06-29 14:21] LABS: hCG Titer Quant., Serum 75 mIU/mL (1-3)
== END ==
PROVIDERS: PCP Family Medicine; Referring Provider Obstetrics & Gynecology; Visit Provider Obstetrics & Gynecology
DX: N91.2 Amenorrhea, unspecified (principal)
CPT/HCPCS: 36415; 84702

== ENCOUNTER → 2021-07-01 11:34 | Outpatient (CLI) | payer OTHER, SELFPAY ==
[2021-07-01 12:22] LABS: hCG Titer Quant., Serum 191 mIU/mL (1-3)
== END ==
LOC: LAB 11:36 → PAVLAB 11:37
PROVIDERS: PCP Family Medicine; Referring Provider Obstetrics & Gynecology; Visit Provider Obstetrics & Gynecology
DX: N91.2 Amenorrhea, unspecified (principal)
CPT/HCPCS: 36415; 84702

== ENCOUNTER 2021-07-15 14:43 | Outpatient (CLI) | payer OTHER, SELFPAY | END 2021-07-15 23:59 | disposition short-term general hospital (02) | LOC: LABSPEC 14:44 | PROVIDERS: PCP Family Medicine; Visit Provider Nurse Practitioner Women's Health | DX: N39.0 Urinary tract infection, site not specified (principal); R30.0 Dysuria | CPT/HCPCS: 87086; 87088 ==

== ENCOUNTER 2021-07-19 17:16 | Outpatient (CLI) | payer OTHER, SELFPAY ==
[2021-07-19 18:32] LABS: Amphetamine Urine VISTA NEGATIVE (<1000 ng/mL); Barbiturate Urine VISTA NEGATIVE (< 200 ng/mL); Benzodiazepine Urine VISTA NEGATIVE (< 200 ng/mL); Cocaine Urine VISTA NEGATIVE (< 300 ng/mL); Ecstacy Urine VISTA NEGATIVE (< 500 ng/mL); Methadone Urine VISTA NEGATIVE (< 300 ng/mL); PCP Urine VISTA NEGATIVE (< 25 ng/mL); THC Urine VISTA NEGATIVE (< 50 ng/mL); Vista UDS pH Range 6
[2021-07-22 00:07] LABS: Chlamydia By Nucleic Acid AMP Negative (Negative)
[2021-07-22 08:37] LABS: Gonococcus By Nucleic Acid AMP Negative (Negative)
== END 2021-07-19 23:59 | disposition short-term general hospital (02) ==
LOC: LABSPEC 17:16
PROVIDERS: PCP Family Medicine; Visit Provider Obstetrics & Gynecology
DX: O09.90 Supervision of high risk pregnancy, unspecified, unspecified trimester (principal)
CPT/HCPCS: 80307; 87491; 87591

== ENCOUNTER 2021-08-16 09:47 | Outpatient (CLI) | payer OTHER, SELFPAY ==
[2021-08-16 10:20] LABS: Absolute Lymphocyte Count 1.94 X10^3/uL (0.83-4.51); Absolute Neutrophil Count 6.5 X10^3/uL (2.0-7.7); Basophil# 0.04 X10^3/uL; Basophil% 0.4 % (0-1); Eosinophil# 0.06 X10^3/uL; Eosinophils% 0.7 % (0-5); Hematocrit 38.3 % (37-47); Hemoglobin 13.1 g/dL (12.0-15.0); Lymphocyte # 1.94 X10^3/ul (0.83-4.51); Lymphocyte % 21.6 % (19-41); Mean Corp Hgb Conc 34.2 g/dL (32-36); Mean Corpuscular Hgb 30.5 pg (27.0-32.0); Mean Corpuscular Volume 89.3 fL (81-99); Mean Platelet Vol. 9.9 fl (6.2-12.0); Monocyte# 0.44 X10^3/uL; Monocyte% 4.9 % (0-10); NRBC Flagged by Analyzer 0 % (0-5); Neutrophil # 6.49 X10^3/uL (2.7-7.7); Neutrophil % 72.1 % (47-70); Platelet Count 218 K/mm3 (150-450); RBC Distribution Width CV 12.7 % (11.6-14.6); RBC Distribution Width SD 41.7 fl (35.1-43.9); Red Blood Count 4.29 M/mm3 (4.2-5.4)
[2021-08-16 11:08] LABS: NATERA MAILED SPECIMEN
[2021-08-16 11:40] LABS: HIV - WCH Non-Reactive (Nonreactive); Hepatitis B Surface Antigen Non-Reactive (Nonreactive); Hepatitis C Antibody Non-Reactive (Nonreactive); Rubella IgG Reactive (Nonreactive); Syphilis Antibodies Non-reactive
== END 2021-08-16 23:59 | disposition home or self-care (01) ==
LOC: PAVLAB 09:48
PROVIDERS: PCP Family Medicine; Referring Provider Obstetrics & Gynecology; Visit Provider Obstetrics & Gynecology
DX: O09.90 Supervision of high risk pregnancy, unspecified, unspecified trimester (principal)
CPT/HCPCS: 36415; 85025; 86703; 86762; 86780; 86803; 86850; 86900; 86901; 87340

== ENCOUNTER → 2021-12-09 | Outpatient (CLI) | payer OTHER, SELFPAY ==
[2021-12-09 09:40] LABS: Absolute Lymphocyte Count 1.74 X10^3/uL (0.83-4.51); Absolute Neutrophil Count 7.8 X10^3/uL (2.0-7.7); Basophil# 0.03 X10^3/uL; Basophil% 0.3 % (0-1); Eosinophil# 0.08 X10^3/uL; Eosinophils% 0.8 % (0-5); Hematocrit 34.8 % (37-47); Hemoglobin 11.6 g/dL (12.0-15.0); Lymphocyte # 1.74 X10^3/ul (0.83-4.51); Lymphocyte % 16.9 % (19-41); Mean Corp Hgb Conc 33.3 g/dL (32-36); Mean Corpuscular Hgb 31.7 pg (27.0-32.0); Mean Corpuscular Volume 95.1 fL (81-99); Mean Platelet Vol. 9.9 fl (6.2-12.0); Monocyte# 0.61 X10^3/uL; Monocyte% 5.9 % (0-10); NRBC Flagged by Analyzer 0 % (0-5); Neutrophil # 7.76 X10^3/uL (2.7-7.7); Neutrophil % 75.3 % (47-70); Platelet Count 198 K/mm3 (150-450); RBC Distribution Width CV 13.1 % (11.6-14.6); RBC Distribution Width SD 45.7 fl (35.1-43.9); Red Blood Count 3.66 M/mm3 (4.2-5.4); White Blood Count 10.3 K/mm3 (4.4-11.0)
[2021-12-09 09:59] LABS: Glucose Challenge Gest 1H 50g 60 mg/dL (70-140)
== END | disposition home or self-care (01) ==
LOC: PAVLAB 09:08
PROVIDERS: PCP Family Medicine; Referring Provider Obstetrics & Gynecology; Visit Provider Obstetrics & Gynecology
DX: O26.899 Other specified pregnancy related conditions, unspecified trimester (principal); Z67.91 Unspecified blood type, Rh negative
CPT/HCPCS: 36415; 82950; 85025; 86850; 86900; 86901

== ENCOUNTER → 2022-02-18 | Outpatient (CLI) | payer OTHER, SELFPAY | END | disposition home or self-care (01) | LOC: LABSPEC 13:31 | PROVIDERS: PCP Family Medicine; Referring Provider Obstetrics & Gynecology; Visit Provider Obstetrics & Gynecology | DX: Z34.93 Encounter for supervision of normal pregnancy, unspecified, third trimester (principal); Z3A.36 36 weeks gestation of pregnancy | CPT/HCPCS: 87081 ==

== ENCOUNTER 2022-03-08 09:55 | Inpatient (IN) | payer OTHER, SELFPAY ==
[2022-03-08] VITALS (18 sets, daily range): BP systolic 103–127; BP diastolic 56–78; PULSE 63–89; RESP 14–18; TEMP 36.3–36.8; O2SAT 94–97; BMI 29.0
--- NOTE | 2022-03-08 10:28 | HP.PCM.OB_ITS ---
HPI - General General Date of Admission: 03/08/22 HPI Narrative FAUSTINA VALDOVINOS, is a 31 F who presents for RLTCS. she has had an uncomplicated Maternal Data Information ROSSY Calculator Estimated Delivery Date Method Current WG Current Estimate 03/12/22 Ultrasound #1 39w 3d Other Estimates 03/01/22 LMP (Certain) 41w 0d PFSH PFSH Medical History Rh negative status during Supervision of high-risk Home Medications vitamin#30 30 mg iron-10 mg iron-folic acid 1 mg-omg3 capsule 1 cap PO DAILY 03/05/19 [History Last Taken 03/06/22 20:00 1 TAB] Allergy/AdvReac Type Severity Reaction Status Date / Time No Known Allergies Allergy Verified 03/08/22 10:11 Family History Unknown Diabetes Heart disease Surgical History delivery delivered History of delivery, antepartum History of wisdom tooth extraction, class II edentulism Social History Smoking Status: Never smoker alcohol intake: never substance use type: does not use caffeine: Yes what type of physical activity do you participate in: walking seatbelt use: always do you feel safe at home: Yes additional social history: - Sylvain History 5 Elective abortions Hx Para 2 Spontaneous abortions 2 Hx # Term Pregnancies Ectopic pregnancies Hx # Pregnancies Multiple births # of living children 2 Past Pregnancies Del. Date Name GA/Weeks Outcome Route Bth Weight Gen Labor Lgth Anesthesia Del Locatn Provider FOB 04/27/17 Stephanie 41 live - full term 7.8 Male ep idural [place] Jhon 05/27/20 Treyson 39 live - full term 7lbs 2oz Male spinal [facility] Delivery Date: 04/27/17 Last Updated by: Maribel Tay decrease in heart rate- c/s Visit Details Expected Delivery Route/Plan RLTCS consider TOLAC if spontaneous labor prior Plans Covid status: non immune, counseled regarding risk of covid in vs vaccination and declined vaccination Flu vaccine: declined Tdap vaccine: declined Rhogam: LARC form signed: [] Problem list reviewed and updated with the most current plan of care details and appropriate orders placed. Relevant counseling for the gestational age provided. Continue routine care and follow up unless otherwise noted in visit notes/problem list details OB Flowsheet Initial Weight: 136 lb Date -?-?-?-?-?-?-?-?-?-?-?-?- EGA Weight BP Urine Prot -?-?-?-?-?-?-?-?-?-?-?-?- Glucose FHR FuHt Pres Dilation -?-?-?-?-?-?-?-?-?-?-?-?- Effaced St Visit Note 07/19/21 -?-?-?-?-?-?-?-?-?-?-?-?- 6w 2d 136 lb (+0 oz) 104/80 -?-?--?-?-?-?-?-?-?-?-?-?- 125 -?-?-?-?-?-?-?-?-?-?-?-?- SM- CRL 6 mm NOT cons with LMP 08/17/21 -?-?-?-?-?-?-?-?-?-?-?-?- 10w 3d 134 lb 6 oz (-1 lb 10 oz) 108/82 Negative -?-?-?-?-?-?-?-?-?-?-?-?- Negative 180 -?-?-?-?-?-?-?-?-?-?-?-?- JV- some nausea, no complaints. waiting on nipt. 08/31/21 -?-?-?-?-?-?-?-?-?-?-?-?- 12w 3d 134 lb 6 oz (-1 lb 10 oz) 110/80 Negative -?-?-?-?-?-?-?-?-?-?-?-?- Negative 157 -?-?-?-?-?-?-?-?-?-?-?-?- JV- pt is being seen urgently today for pelvic pain. there is a 3 cm left corpus luteal cyst that is collapsing and CRL measures 13 week size. pt reassured. keep next scheduled appt. 09/15/21 -?-?-?-?-?-?-?-?-?-?-?-?- 14w 4d 133 lb 8 oz (-2 lb 8 oz) 120/80 Negative -?--?-?-?-?-?-?-?-?-?-?-?- Negative 150 -?-?-?-?-?-?-?-?-?-?-?-?- JV- no complaint s other than sciatic nerve pain. plan for anatomy scan with mfm at 18 weeks. to see chiropractor 10/11/21 -?-?-?-?-?-?-?-?-?-?-?-?- 18w 2d 134 lb (-2 lb) 102/80 -?-?-?-?-?-?-?-?-?-?-?-?- 150 -?-?--?-?-?-?-?-?-?-?-?-?- JV- no complaint s of vaginal bleeding or spotting. she feels the baby low in her pelvis. planning for 39 week rpt section. 11/08/21 -?-?-?-?-?-?-?-?-?-?-?-?- 22w 2d 141 lb 2 oz (+5 lb 2 oz) 120/82 Negative -?-?-?-?-?-?-?-?-?-?-?-?- Negative 146 -?-?-?-?-?-?-?-?-?-?-?-?- JV- no lof, vagi nal bleeding, or dec fm. normal anatomy scan. has anterior placenta. no mention of accreta. 12/07/21 -?-?-?-?-?-?-?-?-?-?-?-?- 26w 3d 144 lb 8 oz (+8 lb 8 oz) 116/82 Negative -?-?-?-?-?-?-?-?-?-?-?-?- Negative 142 -?-?-?-?-?-?-?-?-?-?-?-?- JV- pt complains of darkening on neck region. she may have some insulin resistance. glucola ordered. no lof, vaginal bleeding, or dec fm. 12/28/21 -?-?-?-?-?-?-?-?-?-?-?-?- 29w 3d 150 lb (+14 lb) 120/88 Negative -?-?-?-?-?-?-?-?-?-?-?-?- Negative 140 30 -?-?-?-?-?-?-?-?-?-?-?-?- SM no vb lof goo d fm no regualr ctx tdap declined rhogam given 01/13/22 -?-?-?-?-?-?-?-?-?-?-?-?- 31w 5d 151 lb 4 oz (+15 lb 4 oz) 110/78 Negative -?-?-?-?-?-?-?-?-?-?-?-?- Negative 140 32 -?-?-?-?-?-?-?-?-?-?-?-?- SM- no vb lof go od fm no regular ctx 01/25/22 -?-?-?-?-?-?-?-?-?-?-?-?- 33w 3d 154 lb (+18 lb) 105/67 Negative -?-?-?-?-?-?-?-?-?-?-?-?- Negative 140 34 -?-?-?-?-?-?-?-?-?-?-?-?- SM- no vb lof go od fm no reuglar ctx 02/08/22 -?-?-?-?-?-?-?-?-?-?-?-?- 35w 3d 156 lb (+20 lb) 92/60 Negative -?-?-?-?-?-?-?-?-?-?-?-?- Negative 144 36 0 -?-?-?-?-?-?-?-?-?-?-?-?- -No VB, LOF. G ood FM. More pressure and irreg BH. 02/18/22 -?-?-?-?-?-?-?-?-?-?-?-?- 36w 6d 158 lb (+22 lb) 122/82 Negative -?-?-?-?-?-?-?-?-?-?-?-?- Negative 140 37 Cephalic 0 -?-?-?-?-?-?-?-?-?-?-?-?- SM- no vb lof go od fm no regular ctx 02/25/22 -?-?-?-?-?-?-?-?-?-?-?-?- 37w 6d 157 lb (+21 lb) 128/86 Negative -?-?-?-?-?-?-?-?-?-?-?-?- Negative 140 39 -?-?-?-?-?-?-?-?-?-?-?-?- SM- no vb lof go od fm nor egular ctx 03/04/22 -?-?-?-?-?-?-?-?-?-?-?-?- 38w 6d 157 lb (+21 lb) 110/84 Negative -?-?-?-?-?-?-?-?-?-?-?-?- Negative 145 38 Cephalic 1 -?-?-?-?-?-?-?-?-?-?-?-?- 80 JV- no l of ,vaginal bleeding, or dec fm. 03/08/22 -?-?-?-?-?-?-?-?-?-?-?-?- 39w 3d 158 lb 15.253 oz (+22 lb 15.253 oz) -?-?-?-?-?-?-?-?-?-?-?-?- -?-?-?-?-?-?-?-?-?-?-?-?- NST FHR Rate Baby A Baseline: 130 ROS Constitutional Constitutional: Reports systems reviewed and no addt'l complaints, except as documented Eyes Eyes: Denies change in vision ENT HEENT: Reports systems reviewed and no addt'l complaints, except as documented; Denies headache(s) Cardiovascular Cardiovascular: Reports systems reviewed and no addt'l complaints, except as documented; Denies chest pain or dyspnea Respiratory/Chest Respiratory/Chest: Reports systems reviewed and no addt'l complaints, except as documented Gastrointestinal Gastrointestinal: Reports systems reviewed and no addt'l complaints, except as documented; Denies abdominal pain Genitourinary Genitourinary: Reports systems reviewed and no addt'l complaints, except as documented, contractions Details: present (irregular) and movement Details: present; Denies dysuria or genital lesions Musculoskeletal Musculoskeletal: Reports systems reviewed and no addt'l complaints, except as documented Neurologic Neurologic: Reports systems reviewed and no addt'l complaints, except as documented Endocrine Endocrinology: Reports systems reviewed and no addt'l complaints, except as documented Vital Signs Vital Signs Vital Signs: Weight Weight: 158 lb 15.253 oz Body Mass Index (BMI) 29.0 Physical Exam Const alert, oriented x3, no apparent distress and healthy appearing HEENT normocephalic and moist oral mucous membranes Head and Scalp: atraumatic Neck full ROM, no lymphadenopathy, supple and thyroid normal General: trachea midline Lymph Lymphatic: no lymphadenopathy noted Chest inspection of chest normal Resp normal respiratory effort Cardio regular rate GI normal to inspection, nondistended, normoactive bowel sounds, soft to palpation and non-tender Inspection: gravid external exam normal Manual OB Exam: estimated gestational size appropriate, presentation cephalic, dilated, effaced and station Extremity normal to inspection General Extremity: Negative for edema Skin no rashes or lesions noted Neuro no focal motor deficits and deep tendon reflexes 2+ bilaterally Motor Exam: strength 5/5 throughout and clonus absent Psych mental status grossly normal Labs Labs Labs: Blood Type O NEGATIVE Antibody Screen NEGATIVE Hct 34.8 % (37-47) L Hgb 11.6 g/dL (12.0-15.0) L Obstetrics US Syphilis Total Ab Non-reactive Rubella IgG Antibody Reactive (Nonreactive) Hep Bs Antigen Non-Reactive (Nonreactive) Chlamydia DNA (ZEYNEP) Negative (Negative) Neisseria gonorrhoeae DNA (ZEYNEP) Negative (Negative) HIV 1&2 Antibody Non-Reactive (Nonreactive) Glucose 1 Hr 50 gm 60 mg/dL (70-140) L Rhogam given: Yes Miscellaneous Test Assessment & Plan (1) : QUALIFIERS: Weeks of gestation: 38 weeks Qualified Code(s): Z3A.38 - 38 weeks gestation of COMMENT: GBS neg. anatomy nl, NIPT low risk; declined carrier (2) Supervision of high-risk : COMMENT: PRR ROSSY: 03/12/22 GIRL Angie PC: Dagoberto Brown Spouse: Sylvain (3) Rh negative status during : QUALIFIERS: Qualified Code(s): Z67.91 - Unspecified blood type, Rh negative COMMENT: RHOGAM given 12/28 (4) History of delivery, antepartum: COMMENT: c/s at 39 weeks unless spontaneous labor. cs sec to NRFHT then scheduled Rpt. anterior placenta. no mention of accreta RLTCS scheduled 03/08 @ 12 with SM PLAN: Plan plan RLTCS
[2022-03-08] MEDS: Lactated Ringers 1,000 ML 999 ML IV (10:40)
[2022-03-08 10:55] LABS: Absolute Lymphocyte Count 1.77 X10^3/uL (0.83-4.51); Absolute Neutrophil Count 6.7 X10^3/uL (2.0-7.7); Basophil# 0.03 X10^3/uL; Basophil% 0.3 % (0-1); Eosinophil# 0.04 X10^3/uL; Eosinophils% 0.4 % (0-5); Hematocrit 36.6 % (37-47); Hemoglobin 12.5 g/dL (12.0-15.0); Lymphocyte # 1.77 X10^3/ul (0.83-4.51); Lymphocyte % 19.6 % (19-41); Mean Corp Hgb Conc 34.2 g/dL (32-36); Mean Corpuscular Hgb 31.7 pg (27.0-32.0); Mean Corpuscular Volume 92.9 fL (81-99); Mean Platelet Vol. 10.6 fl (6.2-12.0); Monocyte# 0.45 X10^3/uL; NRBC Flagged by Analyzer 0 % (0-5); Neutrophil # 6.68 X10^3/uL (2.7-7.7); Platelet Count 170 K/mm3 (150-450); RBC Distribution Width CV 14.6 % (11.6-14.6); RBC Distribution Width SD 49.5 fl (35.1-43.9); Red Blood Count 3.94 M/mm3 (4.2-5.4)
[2022-03-08] MEDS: Acetaminophen 500 MG Tablet 1000 MG PO ×3 (10:58→23:28)
[2022-03-08] MEDS: Lactated Ringers 1,000 ML 150 ML IV (11:40)
[2022-03-08] MEDS: Sodium Citrate/Citric Acid 30 ML UDC PO (11:56)
[2022-03-08] MEDS: Cefazolin 2 GM in 0.9% Normal Saline 100 ML IV (12:19)
--- NOTE | 2022-03-08 13:44 | FALS_PTH ---
PATIENT: FAUSTINA VALDOVINOS LOC: WP U#:[id number] AGE/SX: 31/F ROOM: WP004 RE03/08/[address]: Dr. Minoo Munroe MD : 1990 BED: 1 DIS: 03/09/2022 SPEC #: [id number] RECD: 03/08/22 14:27 STATUS: KENNY ISIDROYanni #: [id number] REGINA: 03/08/22 13:[address]: Minoo Munroe DEPT: SURGICAL PATHOLOGY RECD BY: Gustabo Topete ENTERED: 03/09/22 08:23 SP TYPE: FALL TUBES OTHR DR: Dr. Freddie Tadeo, Tissues: Fallopian tube Procedures: Surgery Specimen Level II HEADER OPERATION: Tubal ligation PRE-OP DIAGNOSIS: Sterilization TISSUE SUBMITTED: tissue/parental WB, tie on left tube MICROSCOPIC DIAGNOSIS Bilateral fallopian tubes, salpingectomy: Bilateral fallopian tubes, no pathologic diagnosis. SJ:zuri 03/10/2022 MICROSCOPIC DESCRIPTION Slides are reviewed. GROSS DESCRIPTION Received in fixative is one container labeled with the patient's name and designated bilateral fallopian tubes, stitch on left. The specimen consists of bilateral fallopian tubes including fimbrial ends. The right fallopian tube measures 7.5 cm in length and up to 1 cm in diameter and left fallopian tube measures 7.5 cm in length and 0.8 cm in diameter. Sections reveal unremarkable cut surfaces. Chief Program Officer sections are submitted in two cassettes as follows: 1 ? right fallopian tube, 2 ? left fallopian tube. / DEMETRIO:zuri 03/09/2022 TC:4 CPT: 39135 x2
[2022-03-08] MEDS: Oxytocin 30 units/NS 500 ml 30 UNITS/500 ML IV.SOLN 167 UNITS IV (13:50)
[2022-03-08 14:25] LABS: Pathology Specimen OB SEE PATHOLOGY REPORT
[2022-03-08] MEDS: Ketorolac 30 MG/ML Syringe IV ×2 (14:31→20:07)
--- NOTE | 2022-03-08 14:44 | EX.PCM.OBRPT ---
Assessment & Plan (1) : QUALIFIERS: Weeks of gestation: 38 weeks Qualified Code(s): Z3A.38 - 38 weeks gestation of COMMENT: GBS neg. anatomy nl, NIPT low risk; declined carrier (2) Supervision of high-risk : COMMENT: PRR ROSSY: 03/12/22 HONEY Adams PC: Dagoberto Brown Spouse: Sylvain (3) Rh negative status during : QUALIFIERS: Qualified Code(s): Z67.91 - Unspecified blood type, Rh negative COMMENT: RHOGAM given 12/28 (4) History of delivery, antepartum: COMMENT: c/s at 39 weeks unless spontaneous labor. cs sec to NRFHT then scheduled Rpt. anterior placenta. no mention of accreta RLTCS scheduled 03/08 @ 12 with (5) delivery delivered: COMMENT: 39 RLTCS BS honey Adams Maternal Data Information ROSSY Calculator Estimated Delivery Date Method Current WG Current Estimate 03/12/22 Ultrasound #1 39w 3d Other Estimates 03/01/22 LMP (Certain) 41w 0d Final ROSSY Source: LMP Details Operative Information Date of Procedure: 03/08/22 Pre-Operative Diagnosis: Previous Post-Operative Diagnosis: same Indications for : Repeat Elective Classification: Scheduled Procedure Type: low transverse (and bilateral salpingectomy) health information technologist #1: Melany Berger Type of Anesthesia: Spinal Special Medications: none Antibiotic Given: Ancef 2 grams IV x1 Drain: Medel to straight drain Estimated Blood Loss: 800 Fluids Replaced: crystalloid Findings Description of Procedure: Spinal anesthesia was placed without difficulty. Medel catheter was placed. The patient was placed in the dorsal supine position with leftward tilt. Patient was prepped and draped in the normal sterile fashion. Pfannenstiel skin incision was made with the scalpel and carried through to the underlying layer of fascia with the scalpel. Fascia was nicked in the midline and the incision extended laterally. The rectus bellies were dissected off superiorly and inferiorly with out complication both sharply and bluntly. The peritoneum was entered digitally. The incision was stretched and a low transverse uterine incision was made with the scalpel. The infant's head was delivered atraumatically followed by the anterior and posterior shoulders without complication the rest of the infant delivered. The cord was clamped and cut and the was handed off to awaiting nurse. The placenta was delivered spontaneously immediately following and was noted to be intact and have a three-vessel cord. The uterus was exteriorized cleared of all clots and debris, and the incision was closed in a single layer closure using #1 Monocryl. Patient had desired sterilization and was counseled preoperatively regarding irreversibility and permanency. Therefore bilateral fallopian tubes were elevated and transected across using a LigaSure device starting proximally to distally without complication the entire fallopian tubes were removed. The ovaries and fallopian tubes were noted to be within normal limits. The uterus was returned to the maternal abdomen and gutters were cleared of all clots and debris. aamris placed ove rthe incision. The peritoneum was closed with 3-0 Monocryl in a running fashion. Gloves were changed prior to fascial closure. Fascia was closed with 0 PDS in a running fashion. Subcutaneous tissue was copiously irrigated and the skin was closed with 3-0 Monocryl in a subcuticular fashion. Mepilex dressing was applied without complication. Patient was taken to recovery in stable condition. Amniotic Membrane Rupture Type: Artificial Amniotic Fluid Description: Clear Placenta Disposition: [facility] Cord Vessel Description: 3 Vessels Cord Entanglement: None A Gender: Female Delayed Cord Clamping: Yes Complications Risks of Surgery Discussed w/Patient: Bleeding, Infection, Need for Future C-Sections and Injury to surrounding structure(s) including bowel and bladder Vaginal Delivery Complication Complications: None Admit VTE Documentation VTE Present on Admission: No VTE Mechan Device Prophylaxis: SCD's Multi Select Codes Urinary/Genital Urinary/Genital CPT Codes: 71073 C/S+TL (bilateral salpingectomy) and 70161 Delivery [facility]
--- NOTE | 2022-03-08 14:59 | DCINST_ITS ---
Discharge Instructions Diet Discharge Diet: No restrictions Activity Discharge Activity: Return to Normal Activity, May Drive (when pain free and off narcotic pain meds), May Shower and May Take a Tub Bath (in 4 weeks) May resume sexual activity in: 6 weeks Weight Bearing Status: Full weight bearing Lifting Restrictions: under 30 lbs for 6 weeks Dressing / Incision Call your doctor if your incision/area has: Continuous Slow Oozing, Sudden Increased Bleeding, Increased Pain/ Swelling, Increased Redness, Foul Smelling Discharge and - Call your doctor if you observe: Fever of 101 or Higher, Using more than 1 pad per hour, Shortness of breath, Chest pain and Uncontrolled pain Suture Line Care: Avoid Pulling/Pushing and Avoid Pinching/Bending Change Dressing in: 1 week (leave open to air after removed) Remove Dressing in: 1 week (if present) Cleanse incision/area with: Soap & Water and Keep Dressing Clean & Dry Follow Up Care Please Follow Up With: Minoo Munroe MD When: Call to make an appointment with your doctor for a postop visit in 2 and 6 weeks. Test Results: Test results from this visit will be discussed in further detail at your follow- up appointment, if applicable. Discharge Plan Admission Admit Date/Time: 03/08/22 09:55 Attending Provider: Minoo Munroe Primary Care Provider: Freddie Tadeo Discharge Orders/Prescriptions Prescriptions: New oxycodone-acetaminophen [Percocet] 5-325 mg tablet 1 tab PO Q6H PRN (Reason: pain) 7 Days Qty: 20 0RF naproxen [naproxen] 500 mg tablet 500 mg PO BID PRN PRN (Reason: Pain) Qty: 30 1RF No Action vitamin#30 30 mg iron-10 mg iron-folic acid 1 mg-omg3 capsule 30 mg iron-10 mg iron-1 mg capsule 1 cap PO DAILY Referrals / Follow Up: Freddie Tadeo DO [Primary Care Provider] - Disposition Disposition (needs filled in before D/C Order can be placed): Home, Self Care
--- NOTE | 2022-03-08 15:55 | NURSING ---
Jorge BERKOWITZ and Shaquille RN taking over pt care at this time.
[2022-03-08] MEDS: Lactated Ringers 1,000 ML 100 ML IV (16:49)
--- NOTE | 2022-03-08 17:18 | NURSING ---
Took over pt care from Gopi BERKOWITZ at 1600.
--- NOTE | 2022-03-08 18:14 | NURSING ---
Reviewed and agreed with Shaquille RN charting.
[2022-03-09] MEDS: Ketorolac 30 MG/ML Syringe IV ×2 (02:39→08:37)
[2022-03-09 04:02] VITALS: BP 112/76; PULSE 78; RESP 16; TEMP 36.6; O2SAT 94
[2022-03-09] MEDS: Acetaminophen 500 MG Tablet 1000 MG PO ×3 (05:02→17:51)
[2022-03-09 05:16] LABS: Hematocrit 36.4 % (37-47); Hemoglobin 12.2 g/dL (12.0-15.0); Mean Corp Hgb Conc 33.5 g/dL (32-36); Mean Corpuscular Volume 95.5 fL (81-99); Platelet Count 133 K/mm3 (150-450); RBC Distribution Width CV 14.7 % (11.6-14.6); RBC Distribution Width SD 51.7 fl (35.1-43.9); Red Blood Count 3.81 M/mm3 (4.2-5.4); White Blood Count 11.1 K/mm3 (4.4-11.0)
--- NOTE | 2022-03-09 07:47 | PN.OBGYN_ITS ---
Subjective Subjective Patient doing well without complaints. Tolerating PO. Ambulating and voiding without difficulty. Feeding well. Denies chest pain, shortness of breath, calf pain/swelling, fevers, chills, lightheadedness. Objective Data Objective Data Vital Signs: Vital Signs Temp Pulse Resp BP Pulse Ox O2 Del Method 97.9 F 78 16 112/76 94 Room Air 03/09/22 04:02 03/09/22 04:02 03/09/22 04:02 03/09/22 04:02 03/09/22 04:02 03/09/22 04:02 Oxygen Delivery Method Room Air Weight: 158 lb 15.253 oz Body Mass Index (BMI) 29.0 Intake & Output: Intake and Output for Last 24 Hours 03/07/22 03/08/22 03/09/22 23:59 23:59 23:59 Intake Total 2482.33 / 2482.33 Output Total 1400 / 1400 450 / 450 Balance 1082.33 / 1082.33 -450 / -450 Lab / Micro Data Result Diagrams: 03/09/22 05:09 Labs: Laboratory Results - last 24 hr 03/08/22 10:30: WBC 9.0, RBC 3.94 L, Hgb 12.5, Hct 36.6 L, MCV 92.9, MCH 31.7, MCHC 34.2, RDW Std Deviation 49.5 H, RDW Coeff of Mabel 14.6, Plt Count 170, MPV 10.6, Immature Gran % (Auto) 0.700, Neut % (Auto) 74.0 H, Lymph % (Auto) 19.6, [place] % (Auto) 5.0, Eos % (Auto) 0.4, Baso % (Auto) 0.3, Absolute Neuts (auto) 6.7, Absolute Lymphs (auto) 1.77, Nucleated RBC % 0 03/08/22 10:30: Blood Type O NEGATIVE, Antibody Screen POSITIVE H, Antibody Identification ANTI-D 03/09/22 05:09: WBC 11.1 H, RBC 3.81 L, Hgb 12.2, Hct 36.4 L, MCV 95.5, MCH 32.0, MCHC 33.5, RDW Std Deviation 51.7 H, RDW Coeff of Mabel 14.7 H, Plt Count 133 L, MPV 10.0 Micro: Microbiology 03/08/22 10:30 Nasal Secretion SARS-CoV-2 Antigen (Rapid) - Final Physical Exam Const alert and oriented x3 HEENT normocephalic Eyes PERRL Neck full ROM Resp normal respiratory effort GI soft to palpation GI Narrative: FF below U. Dressing dry and intact Palpation: tender other (appropriately) Assessment & Plan (1) delivery delivered: COMMENT: SM 39 RLTCS BS girl Angie (2) Rh negative status during : QUALIFIERS: Qualified Code(s): Z67.91 - Unspecified blood type, Rh negative COMMENT: RHOGAM given 12/28 PLAN: Plan s/p LTCS PPD # 1 1. routine post care 2. breast feeding- support given 3. rh negative 4. rubella immune
[2022-03-09 08:33] VITALS: BP 129/80; PULSE 71; RESP 17; TEMP 36.4; O2SAT 96
[2022-03-09] MEDS: 0.9% Saline Lock 10 ML Syringe IV (08:38)
[2022-03-09] MEDS: Senna/Docusate Sodium 1 Tablet PO (10:48)
[2022-03-09] MEDS: Prenatal Vits Tablet 1 TABLET PO (11:54)
[2022-03-09 15:43] VITALS: BP 128/77; PULSE 84; RESP 18; TEMP 36.6; O2SAT 95
--- NOTE | 2022-03-09 17:09 | NURSING ---
student nurses charting reviewed and agree for educational and learning purposes only
[2022-03-09] MEDS: Naproxen 500 MG Tablet PO (17:51)
== END 2022-03-09 18:33 | disposition home or self-care (01) | DRG 785 ==
PROVIDERS: Admitting Provider Obstetrics & Gynecology; PCP Family Medicine; Visit Provider Obstetrics & Gynecology
PROC: 10D00Z1 Extraction of Products of Conception, Low, Open Approach (ICD-10-PCS; CPT 59514; principal; 2022-03-08 11:45)
DX: O34.211 Maternal care for low transverse scar from previous cesarean delivery (principal); Z20.822 Contact with and (suspected) exposure to COVID-19; Z3A.38 38 weeks gestation of pregnancy; Z37.0 Single live birth; Z30.2 Encounter for sterilization
CPT/HCPCS: 59025; 59050; 85025; 85027; 86850; 86870; 86900; 86901; 87426; 88302; 99218; J7120; A4216; G0378

== ENCOUNTER 2022-03-13 19:15 | Emergency (ER) | payer OTHER, SELFPAY ==
[2022-03-13 19:16] VITALS: BP 157/113; PULSE 70; RESP 18; TEMP 36.6; O2SAT 98; BMI 25.6
--- NOTE | 2022-03-13 20:02 | EDS_ITS ---
HPI HPI - Female History of Present Illness Chief Complaint: Vag Bleeding Informant: patient and spouse/S.O. Narrative Narrative: G3, P3 postop day [address] Roni Jimenez. Also reported elective bilateral salpingectomy. She states she went home the following day. Had mild vaginal bleeding. She concerned there may have been blood in the urine. She had Medel catheter for her procedures removed that evening. Mild discomfort with urination. Today noted clots and clear from her urine or vaginal area. Spoke with her litigation claim representative to go to urgent care for UA. She spoke with her PCP who referred her to the ED. Prior similar symptoms: No PFSH PFSH Medical History (Updated 03/13/22 @ 21:[address] Hector Horvath, DO) delivery delivered Rh negative status during Supervision of high-risk Home Medications naproxen 500 mg tablet 500 mg PO BID PRN PRN Pain #30 tabs 03/08/22 [Rx Last Taken Unknown] nitrofurantoin monohydrate/macrocrystals 100 mg capsule (Macrobid) 100 mg PO Q12H 5 days #10 caps 03/13/22 [Rx Last Taken Unknown] Allergy/AdvReac Type Severity Reaction Status Date / Time No Known Allergies Allergy Verified 03/13/22 19:16 Family History Unknown Diabetes Heart disease Surgical History (Updated 03/08/22 @ 14:[address] Minoo Munroe MD) delivery delivered History of delivery, antepartum History of wisdom tooth extraction, class II edentulism Social History Smoking Status: Never smoker alcohol intake: never substance use type: does not use caffeine: Yes what type of physical activity do you participate in: walking seatbelt use: always do you feel safe at home: Yes additional social history: - [place] EXAM Physical Exam Const Vital Signs: 03/13/22 19:16 Temperature 97.8 F Temperature Source Temporal Pulse Rate 70 Respiratory Rate 18 Blood Pressure 157/113 H Blood Pressure Mean 127 Pulse Ox 98 Oxygen Delivery Method Room Air Positive well nourished and well developed General Appearance ED: well developed and NAD HEENT Reports moist mucous membranes normocephalic and atraumatic Eyes PERRL, EOMs intact bilaterally and conjunctivae normal General Eye ED: Yes normal appearance of both eyes Neck no lymphadenopathy and supple General: Negative for tenderness Chest Wall Chest: Negative for tenderness Resp normal respiratory effort and normal air movement Effort and Inspection: symmetric chest movement; Negative for respiratory distress Cardio regular rate, regular rhythm and no murmurs Peripheral Pulses: pulses 2+ throughout GI normal to inspection, nondistended, normoactive bowel sounds and non-tender GI Narrative: Lower pelvic incision with dressing clean, dry, intact. Palpation: Negative for guarding or rebound tenderness present Narrative: Nursing present for exam. External exam normal. Speculum exam noted nabothian cysts at the cervix there is minimal blood at the cervical os, no clots noted. No blood in the vault. Back/Spine no CVA tenderness and no thoracic nor lumbar tenderness Extremity normal to inspection General Extremety ED: Negative for edema or tenderness General Extremity: Negative for edema Neuro oriented x3 and no sensory deficits noted Sensorium / Orientation: awake and alert Skin no rashes or lesions noted and no wounds MDM MDM MDM Narrative Medical decision making narrative: Urine noted leukocytes with slight blood. Not toxic. Pelvic exam with no significant bleeding or noted nabothian gland. Started on antibiotics. Slightly elevated blood pressure however denied headache chest pain shortness of breath vomiting follow-up as an outpatient. Lab Data Labs: Laboratory Results - last 24 hr 03/13/22 20:00 Urine Color Yellow Urine Clarity Sl. Cloudy Urine pH 6.0 Ur Specific [place] 1.010 Urine Protein Negative Urine Glucose (UA) Normal Urine Ketones Negative Urine Occult Blood 10 H Urine Nitrite Negative Urine Bilirubin Negative Urine Urobilinogen Normal Ur Leukocyte Esterase 25 H Urine RBC 0-5 SEEN Urine WBC 0-5 SEEN Ur Squamous Epith Cells 0-5 SEEN Urine Bacteria 0 SEEN Urine Mucus 0 SEEN Discharge Plan Triage Chief Complaint: Vag Bleeding ED Provider: Hector Horvath Dx/Rx/DC Orders Clinical Impression: UTI (urinary tract infection), Hematuria, Nabothian cyst Instructions: Urinary Tract Infections in Women Prescriptions: New nitrofurantoin monohyd/m-cryst [Macrobid] 100 mg capsule 100 mg PO Q12H 5 Days Qty: 10 0RF Rx Instructions: must administer with a meal/food No Action naproxen [naproxen] 500 mg tablet 500 mg PO BID PRN PRN (Reason: Pain) Qty: 30 1RF Primary Care Provider: Freddie Tadeo Referrals: Freddie Tadeo DO [Primary Care Provider] - Minoo Munroe MD [Med Staff - Active Staff] - 3-5 Days Activity Restrictions/Additional Instructions: Urine with UTI findings. Pelvic exam nabothian cyst seen on the service there is no significant bleeding. Monitor symptoms. Take antibiotic as prescribed. Follow-up with your doctor. Disposition Disposition: Home, Self Care Discharge Date/Time: 03/13/22 21:34
[2022-03-13 20:11] LABS: Bacteria 0 SEEN /hpf (None Seen); Mucous, Urine 0 SEEN /hpf (<or=2+)
[2022-03-13 20:18] LABS: Color, Urine Yellow (Yellow); Glucose, Dipstick Normal (Normal); Ketone-Dipstick Negative (Negative); Leukocyte Esterase-Dipstick 25 /ul (Negative); Nitrite-Dipstick Negative (Negative); Occult Blood-Urine 10 /ul (Negative); Protein-Dipstick Negative (Negative); Urine Bilirubin Dipstick Negative (Negative); Urine Clarity Sl. Cloudy (Clear); Urine Urobilinogen Normal (Normal)
[2022-03-13 20:35] LABS: Red Blood Cells-Urine 0-5 SEEN /hpf (0-5); Squamous Epithelial Cells - UA 0-5 SEEN /hpf (5-10); White Blood Cells 0-5 SEEN /hpf (0-5)
[2022-03-13] MEDS: Nitrofurantoin Macrocrystals 100 MG Capsule PO (21:32)
== END 2022-03-13 21:34 | disposition home or self-care (01) ==
PROVIDERS: Emergency Provider Emergency Medicine; PCP Family Medicine; Visit Provider Emergency Medicine
DX: N39.0 Urinary tract infection, site not specified (principal); R31.9 Hematuria, unspecified; N93.9 Abnormal uterine and vaginal bleeding, unspecified; N88.8 Other specified noninflammatory disorders of cervix uteri
CPT/HCPCS: 81001; 99283

== ENCOUNTER → 2023-04-21 | Outpatient (CLI) | payer OTHER, SELFPAY ==
--- NOTE | 2023-04-21 08:56 | US_ITS ---
STUDY: ULTRASOUND BREAST - LEFT REASON FOR EXAM: Female, 32 years old. Left breast pain. TECHNIQUE: Axial and longitudinal images of the LEFT breast were performed with a high resolution ultrasound transducer. # OF IMAGES: 25 COMPARISON: Comparison is made with prior mammogram done earlier today. FINDINGS: LEFT Breast: The upper outer quadrant of the left breast was examined with ultrasound. There is dense fibroglandular tissue. No sonographic abnormality is seen. US/Breast Limited Unilateral IMPRESSION: No sonographic abnormality is seen. ASSESSMENT CATEGORY: BIRADS Category 1: Negative. A letter regarding these results will be sent to the patient by the facility within 30 days. Electronically Signed: Clovis Byrd MD at 11:12 EDT ,
--- NOTE | 2023-04-21 08:56 | BI_ITS ---
MAMMOGRAPHY - BILATERAL DIAGNOSTIC REASON FOR EXAM: Female, 32 years old. One-month history of occasional left breast pain. PERTINENT HISTORY: Grandmother with breast cancer. Aunt with breast cancer. TECHNIQUE: Digital bilateral breast rosa maria (3D mammographic acquisition) in the CC and MLO projections. 2-D mediolateral oblique (MLO) and craniocaudad (CC) views of both breasts were obtained. CAD: Full Field Digital Mammography with Computer Added Detection was performed. COMPARISON: None. Baseline examination. FINDINGS: Breast Composition: The breasts are extremely dense, which lowers the sensitivity of mammography. There are no dominant masses or suspicious calcifications. No other significant abnormalities are identified. BI/DIAG MAMM W/CAD, BILAT IMPRESSION: Negative diagnostic mammogram. With the patient''s history of occasional left breast pain, correlation with targeted ultrasound evaluation is recommended. ASSESSMENT CATEGORY: BIRADS Category 0: Incomplete. Need additional imaging evaluation. A letter regarding these results will be sent to the patient by the facility within 30 days. Approximately 10% of breast cancers are not detected by mammography. A normal mammogram should not delay biopsy of a clinically suspicious abnormality. Electronically Signed: Clovis Byrd MD at 10:56 EDT ,
== END | disposition home or self-care (01) ==
PROVIDERS: PCP Family Medicine; Referring Provider Advanced Practice Midwife; Visit Provider Advanced Practice Midwife
DX: N64.4 Mastodynia (principal)
CPT/HCPCS: 76642; 77062; 77066; G0279